=== PATIENT | male | born 1970 | race Caucasian/White ===

== ENCOUNTER 2016-06-21 18:14 | Emergency (ER) | payer MEDICARE, OTHER | END 2016-06-21 20:45 | disposition home or self-care (01) | LOC: ER1 18:14 | DX: L02.212 Cutaneous abscess of back [any part, except buttock and flank] (principal); I10 Essential (primary) hypertension; F17.210 Nicotine dependence, cigarettes, uncomplicated | CPT/HCPCS: 10060; 99282 ==

== ENCOUNTER 2016-08-05 10:42 | Inpatient (IN) | payer MEDICARE, OTHER ==
[~2016-08-05] VITALS: Ht 172.7 cm; Wt 74.8 kg
[2016-08-05 11:25] LABS: HEMOGLOBIN 12.1 gm/dl (14.0-17.5); RED BLOOD COUNT 4.02 M/UL (4.20-5.50); WHITE BLOOD COUNT 15.5 K/UL (4.5-11.0)
[2016-08-05 11:43] LABS: BUN/CREATININE RATIO 17 (0-10)
[2016-08-06 04:54] LABS: HEMOGLOBIN 12.1 gm/dl (14.0-17.5); RED BLOOD COUNT 4.07 M/UL (4.20-5.50)
[2016-08-06 04:55] LABS: WHITE BLOOD COUNT 11.3 K/UL (4.5-11.0)
[2016-08-06 05:12] LABS: BUN/CREATININE RATIO 20 (0-10)
[2016-08-07 05:29] LABS: HEMOGLOBIN 12.8 gm/dl (14.0-17.5); RED BLOOD COUNT 4.2 M/UL (4.20-5.50)
[2016-08-07 05:44] LABS: BUN/CREATININE RATIO 20 (0-10)
== END 2016-08-07 15:00 | disposition left against medical advice (07) | DRG 982 ==
LOC: ER1 10:42 → MED SURG 4 13:44 → ZEROF 13:44 → MED SURG 4 14:09
PROVIDERS: Internal Medicine; Orthopaedic Surgery; Physician Assistant Medical; ADMIT Family Medicine
PROC: 0HBQXZZ Excision of Finger Nail, External Approach (ICD-10-PCS; 2016-08-06)
PROC: 0LB80ZZ Excision of Left Hand Tendon, Open Approach (ICD-10-PCS; principal; 2016-08-06 18:00)
DX: L02.512 Cutaneous abscess of left hand (principal); L02.415 Cutaneous abscess of right lower limb; L03.012 Cellulitis of left finger; B95.62 Methicillin resistant Staphylococcus aureus infection as the cause of diseases classified elsewhere; I10 Essential (primary) hypertension; F17.210 Nicotine dependence, cigarettes, uncomplicated; F12.90 Cannabis use, unspecified, uncomplicated; Z91.19 Patient's noncompliance with other medical treatment and regimen; Z82.3 Family history of stroke; Z82.49 Family history of ischemic heart disease and other diseases of the circulatory system
CPT/HCPCS: 10061; 36415; 73130; 80048; 80053; 80202; 83735; 85025; 86140; 87040; 87070; 87077; 87186; 87205; 96374; 99284; J2250; J2270; J3010; J3370; J7070; J7120